=== PATIENT | male | born 1935 | race Caucasian/White ===

== ENCOUNTER 2017-05-24 10:20 | Inpatient (IN) ==
--- NOTE | 2017-05-24 11:35 | Emergency Department Note ---
Arrival - Arrival Chief Complaint: Upper Respiratory Stated Complaint: fever,chills,maybe pneumonia ED Nursing Triage Note: c/o productive cough onset fow a while when working outside but worse last night Mode of Arrival: Ambulatory Limitations: No Limitations Source: Patient Time Seen by Provider: 05/24/17 11:27 - History of Present Illness HPI Narrative: This is an 81-year-old white male who is complaining of a productive cough that began approximately 1 day ago. He states he has been working outside and it got worse last night. He also states that he has a history of pneumonia. He states that the sputum has been clear, but has had some chills at home without a measured fever. He does not have any other complaints for this visit. Onset (ago): day(s) (1) Severity: mild Allergies/Adverse Reactions: Allergies Allergy/AdvReac Type Severity Reaction Status Date / Time No Known Allergies Allergy Unverified 05/24/17 10:53 Review of System - Review of System 12 point system: reviewed and no additional remarkable complaints except as stated - Review of System Constitutional: Present: as per HPI. Absent: fever Respiratory: Present: as per HPI, cough Medical,Surgical,& Family Hx - Medical History Cardio: History of: Hypertension - Surgical History Cardiac Surgeries: Sugical HX of: Cardiac Catheterization - Social History Smoking Status: Smoker, status unknown Frequency of Alcohol Use: None Type of Drug Use: None Exam Physical Examination: - General General appearance: [alert, in mild distress] - Head Head exam: [Present: atraumatic, normocephalic, normal inspection] - Eye Eye exam: [Present: normal appearance, PERRL, EOMI] - ENT ENT exam: [Present: normal exam, normal oropharynx, mucous membranes moist, TM' s normal bilaterally, normal external ear exam] - Neck Neck exam: [Present: normal inspection, full ROM, trachea midline] - Chest Chest inspection: [Present: normal inspection, symmetric chest wall rise] - Respiratory Respiratory exam: [Present: normal lung sounds bilaterally] - Cardiovascular Cardiovascular exam: [Present: regular rate, normal rhythm, normal heart sounds] - Abdominal Exam Abdominal exam: [Present: soft, normal bowel sounds] - Extremities Exam Extremities exam: [Present: normal inspection, full ROM] - Back Exam Back exam: [Present: normal inspection, full ROM] - Neurological Exam Neurological exam: [Present: alert, oriented X3] - Psychiatric Psychiatric exam: [Present: normal affect, normal mood] - Skin Skin exam: [Present: warm, dry, intact, normal color] Vital Signs: Vital Signs Temperature 99.3 F 05/24/17 11:19 Pulse Rate 84 05/24/17 12:27 Respiratory Rate 18 05/24/17 12:27 Blood Pressure 116/54 05/24/17 12:27 O2 Sat by Pulse Oximetry 91 L 05/24/17 10:50 Course - Reevaluation(s) Reevaluation #1: I spoke with hospitalist services about the patient and they will come down to see her in nonurgent. Time: 12:50 Reevaluation #2: Sp from hospitalist services is down to see the patient Time: 12:55 Results - Labs CBC & BMP: 05/24/17 11:31 05/24/17 11:31 Disposition Clinical Impression: Pneumonia Case discussed with: patient Disposition: Still a Patient
[2017-05-24 11:48] LABS: Basophils % 0.3 % (0.0-0.8); Eosinophils % 0.2 % (0.00-10.9); Hematocrit 44.7 VOL% (42.0-52.0); Hemoglobin 15.3 GM/DL (14.0-18.0); Immature Granulocytes % 0.5 %; Immature Granulocytes Absolute 0.08 #; Lymphocytes # 1.1 10*3/uL (1.4-4.0); Lymphocytes % 7.5 % (21.2-54.2); Mean Corpuscular HGB Conc 34.2 GM/DL (32-36); Mean Corpuscular Hemoglobin 31 PG (27-34); Mean Corpuscular Volume 91.8 FL (87-102); Mean Platelet Volume 10.3 FL (9.6-12.0); Monocytes # 1.5 10*3/uL (0.11-0.8); Monocytes % 10.5 % (1.7-12.7); Neutrophils # 11.8 10*3/uL (1.4-7.4); Platelet Count 121 T/CUMM (130-400); Red Blood Count 4.87 MC/CUMM (3.8-5.5); Red Cell Distribution Width 14.2 % (9.3-17.3); White Blood Count 14.6 T/CUMM (4-12)
[2017-05-24 12:18] LABS: Calcium 8.9 MG/DL (8.5-10.1); Potassium 3.6 MMOL/L (3.5-5.1)
[2017-05-24] MEDS ORDERED: cefTRIAXone 1,000 MG VIAL IM STA (12:27)
[2017-05-24] MEDS ORDERED: cefTRIAXone 1,000 MG VIAL ONE (12:29)
[2017-05-24] MEDS ORDERED: cefTRIAXone 1,000 MG in SODIUM CHLORIDE 0.9% 100 ML IV STA (12:35)
--- NOTE | 2017-05-24 12:39 | XRay Report ---
XR chest 2V Indication: Productive cough, fever Comparison: None available Findings: The heart and mediastinum are within normal limits of size and configuration. The pulmonary vascularity is slightly increased. There is increased interstitial pulmonary density with some faint alveolar densities are present mostly within the left midlung near the hilum. No other lung infiltrates, effusions, pneumothorax or other abnormality is demonstrated. Impression: Increased interstitial pulmonary density with faint alveolar densities in the left lung, could indicate pneumonia. Cardiac decompensation cannot be excluded. PROCEDURE INTERPRETED AT [facility] DEPARTMENT OF RADIOLOGY Final Report Signed by: Dr. Ruy Yañez
[2017-05-24] MEDS ORDERED: ALBUTEROL 2.5 MG/3 ML NEB RESP TX PRN (15:25)
[2017-05-24] MEDS ORDERED: ONDANSETRON 4 MG/2 ML VIAL IV PRN (15:25)
[2017-05-24] MEDS ORDERED: ACETAMINOPHEN 325 MG TABLET PO PRN (15:25)
--- NOTE | 2017-05-24 15:41 | Hospitalist History & Physical ---
Assessment and Plan (1) Pneumonia Status: Acute Assessment and plan: Admit to med surg. Start IV fluids. IV antibiotics (Rocephin/Azithromax). prn breathing treatments. Supplemental O2. Blood cultures. UA. CBC in am. Current Visit: Yes (2) Hypertension Status: Acute Assessment and plan: BP stable. Current Visit: Yes (3) Coronary artery disease Status: Chronic Current Visit: Yes History of Present Illness Chief complaint: cough History of present illness: Mr. Gillespie is a 81 year old white male with a history of htn, cad, stent placement, and pneumonia that presents to the ED today for further evaluation of a cough. Pt. states that he was in his normal state of health until yesterday evening when he developed a productive cough. Pt. states he began to produce thick, white sputum. He reports he also began to have "flashes of hot and cold" with a subjective fever and some chills at bedtime. Pt. denies taking any medication to help with the symptoms and presented to the ED for treatment. Pt. denies chest pain, n/v, abdominal pain and any other symptoms at this time. Pt. reports a history of pneumonia in the past. Pt's PCP is Dr. Higgins. Dr. Antonio is his corn shredder. Pt's case has been discussed with the ER physician and also Dr. Rodriguez. Pt. will be admitted to the hospitalist service for further eval and treatment. Home Medications Medication Instructions Recorded Confirmed Type Aspirin [Ecotrin] 81 mg PO QAM 05/24/17 05/24/17 History Carvedilol [Carvedilol] 6.25 mg PO BID 05/24/17 05/24/17 History Gabapentin 300 mg PO TID 05/24/17 05/24/17 History Isosorbide Mononitrate [Isosorbide 30 mg PO QAM 05/24/17 05/24/17 History Mononitrate ER] Losartan Potassium [Losartan 25 mg PO QAM 05/24/17 05/24/17 History Potassium] Simvastatin [Simvastatin] 40 mg PO QAM 05/24/17 05/24/17 History Temazepam [Temazepam] 15 mg PO BEDTIME 05/24/17 05/24/17 History buPROPion HCl [Bupropion HCl Sr] 150 mg PO BID 05/24/17 05/24/17 History Allergies Allergy/AdvReac Type Severity Reaction Status Date / Time No Known Allergies Allergy Unverified 05/24/17 10:53 Medical,Surgical,& Family Hx - Medical History Cardio: History of: Hypertension - Surgical History Cardiac Surgeries: Sugical HX of: Cardiac Catheterization - Family History Family History: Reports;: Family Cancer (mother) - Social History Smoking Status: Smoker, status unknown Frequency of Alcohol Use: None Type of Drug Use: None Marital Status: Lives With:: Spouse Functional capacity: uses cane/walker 12 point system: reviewed and no additional remarkable complaints except as stated - Constitutional Constitutional: Present: chills, fever(s). Absent: night sweats - EENT Eyes: Absent: loss of vision Ears: Present: decreased hearing - Cardiovascular Cardiovascular: Present: dyspnea on exertion. Absent: edema - Respiratory Respiratory: Present: cough, dyspnea on exertion - Gastrointestinal Gastrointestinal: Absent: abdominal pain, nausea, vomiting - Genitourinary Genitourinary: Absent: difficulty urinating, dysuria - Neurological Neurological: Absent: dizziness - Endocrine Endocrine: Present: heat intolerance Exam - Constitutional Vitals: Period Temp Pulse Resp BP Sys/Lopez Pulse Ox Last 24 Hr 99.3 F-99.3 F 84-95 18-20 116-143/54-58 91 General appearance: no acute distress, over weight - Head Head exam: Present: normal inspection, normocephalic - Eye Eye exam: Present: EOMI Pupils: Present: ERICA - GI/Abdominal GI/Abdominal exam: Present: normal bowel sounds, soft. Absent: tenderness - Extremities Exam Extremities exam: Present: normal capillary refill, full ROM. Absent: edema - Neurological Exam Neurological exam: Present: alert, oriented X3 - Psychiatric Psychiatric exam: Present: normal affect, normal mood - Skin Skin exam: Present: normal color, warm, dry Results - Labs CBC & BMP: 05/24/17 11:31 05/24/17 11:31 Lab Results: I have reviewed the past 24 hour labs
[2017-05-24] MEDS: AZITHROMYCIN INJ 500 MG in SODIUM CHLORIDE 0.9% 250 ML IV SCH (16:47)
[2017-05-24] MEDS: ALBUTEROL/IPRATROPIUM 3 ML NEB RESP TX SCH (18:50)
[2017-05-24] MEDS: GABAPENTIN 300 MG CAPSULE PO SCH (20:28)
[2017-05-24] MEDS: CARVEDILOL 6.25 MG TABLET PO SCH (20:28)
[2017-05-24] MEDS: buPROPion SR 150 MG TABLET PO SCH (20:28)
[2017-05-25] MEDS: TEMAZEPAM 15 MG CAPSULE PO SCH ×2 (00:10→21:32)
[2017-05-25] MEDS: ALBUTEROL/IPRATROPIUM 3 ML NEB RESP TX SCH ×4 (00:29→19:09)
[2017-05-25 06:32] LABS: Basophils % 0.1 % (0.0-0.8); Eosinophils # 0.1 10*3/uL (0.0-0.87); Eosinophils % 0.4 % (0.00-10.9); Hematocrit 38.6 VOL% (42.0-52.0); Immature Granulocytes % 0.5 %; Immature Granulocytes Absolute 0.07 #; Lymphocytes # 1.7 10*3/uL (1.4-4.0); Lymphocytes % 12.3 % (21.2-54.2); Mean Corpuscular HGB Conc 33.9 GM/DL (32-36); Mean Corpuscular Hemoglobin 32 PG (27-34); Mean Corpuscular Volume 92.8 FL (87-102); Mean Platelet Volume 11.1 FL (9.6-12.0); Monocytes # 1.2 10*3/uL (0.11-0.8); Monocytes % 8.7 % (1.7-12.7); Neutrophils # 10.9 10*3/uL (1.4-7.4); Platelet Count 113 T/CUMM (130-400); Red Blood Count 4.16 MC/CUMM (3.8-5.5); Red Cell Distribution Width 14.5 % (9.3-17.3)
[2017-05-25 06:33] LABS: Hemoglobin 13.1 GM/DL (14.0-18.0)
[2017-05-25 07:03] LABS: Band Neutrophils 4 % (0-10); Giant Platelets Few; Hypochromasia 1+; Lymphocytes 9 % (20-55); Ovalocytes Slight; Platelet Estimate Decreased; Segmented Neutrophils 81 % (50-85); Total Cells Counted 100
[2017-05-25 07:13] LABS: Calcium 8.2 MG/DL (8.5-10.1); Osmolality,Calculated 284.1 MOS/KG (273-304); Potassium 3.7 MMOL/L (3.5-5.1); Risk Ratio 1.71; Thyroid Stimulating Hormone 0.331 uIU/ml (0.358-3.74); VLDL CHOLESTEROL 11.2 MG/DL
[2017-05-25] MEDS ORDERED: cefTRIAXone 1,000 MG in SODIUM CHLORIDE 0.9% 100 ML IV SCH (09:00)
--- NOTE | 2017-05-25 10:02 | CT Report ---
Exam: CT chest without intravenous contrast Exam date: 05/25/2017 9:56 AM Clinical History: 81 years Male shortness of breath, pneumonia Technique: Axial computed tomography images of the chest without intravenous contrast. The CT exam was performed using one or more of the following dose reduction techniques: Automated exposure control, adjustment of the mA and/or kV according to patient size, or use of iterative reconstruction technique. Comparison: Radiographs from previous day at 1149 hours Findings: Lungs: Patchy perihilar and bibasilar reticular nodular interstitial opacities with parenchymal consolidation. Pleural spaces: No pneumothorax. No significant effusion Heart: Essentially 2 chamber cardiomegaly with atheromatous plaquing along the coronary vessels Mediastinum: Intact. Normal trachea. Granulomatous changes are noted Bones/joints: Intact. No acute fracture. No dislocation. Spondylitic changes throughout the spinal axis Soft tissues: Unremarkable Vasculature: Intact Lymph nodes: No enlarged lymph nodes Visualized abdomen: Colonic diverticula. Small hiatal hernia Impression: 1. Multifocal pneumonia 2. Coronary atherosclerosis. 3. Diverticulosis coli 4. Small hiatal hernia PROCEDURE INTERPRETED AT [facility] DEPARTMENT OF RADIOLOGY Final Report Signed by: Farhan Lobo
[2017-05-25] MEDS: ASPIRIN EC 81 MG TABLET PO SCH (10:14)
[2017-05-25] MEDS: buPROPion SR 150 MG TABLET PO SCH ×2 (10:14→21:31)
[2017-05-25] MEDS: GABAPENTIN 300 MG CAPSULE PO SCH ×3 (10:14→21:31)
[2017-05-25] MEDS: LOSARTAN 25 MG TABLET PO SCH (10:14)
[2017-05-25] MEDS: PANTOPRAZOLE 40 MG TABLET PO SCH (10:14)
[2017-05-25] MEDS: ISOSORBIDE MONONITRATE 30 MG TABLET PO SCH (10:14)
[2017-05-25] MEDS: SIMVASTATIN 40 MG TABLET PO SCH (10:14)
[2017-05-25] MEDS: CARVEDILOL 6.25 MG TABLET PO SCH ×2 (10:15→21:32)
[2017-05-25 12:12] LABS: Apearance,Urine CLOUDY (Clear); Bilirubin,Urine Negative (Negative); Blood, Urine Negative (Negative); Glucose,Urine (UA) Negative (Negative); Ketones,Urine Negative (Negative); Mucus,Urine Many /LPF (Occasional); Nitrite,Urine Negative (Negative); Protein,Urine 30 MG/DL; RBC,Urine 1 /HPF (0-4); Sperm,Urine Occasional /HPF (Negative); Squamous Epithelial Cell,Urine Occasional /HPF (0-10); Urine Color Yellow (Yellow); Urine Specific Gravity 1.028 (1.001-1.035); Urine Urobilinogen < 2.0 EU/DL (0.2-1.0); WBC,Urine 4 /HPF (0-6)
[2017-05-25] MEDS: cefTRIAXone 1,000 MG in SODIUM CHLORIDE 0.9% 100 ML IV SCH (12:39)
[2017-05-25] MEDS: AZITHROMYCIN INJ 500 MG in SODIUM CHLORIDE 0.9% 250 ML IV SCH (15:19)
--- NOTE | 2017-05-25 15:41 | Hospitalist Progress Note ---
Hospitalist: Subjective Interval history: 81-year-old male who was admitted with pneumonia cough and fever. Cough and fever are better today Exam - Constitutional Vitals: Period Temp Pulse Resp BP Sys/Lopez Pulse Ox Last 24 Hr 97.4 F-98.2 F 70-105 12-20 106-126/50-70 92-98 Exam: General: [No Acute Distress] HEENT: [Normocephalic, atraumatic, Extra ocular movements intact] Neck: [Supple, No JVD] Chest: [Few rales bilaterally] CV: [S1 + S2 audible without murmur, gallop or rub] Abd: [soft, NT, Non-distended, BS +] Ext: [No edema] Skin: [No purpura, bruising or rash] Rheumatologic: [No Joint deformities] Neurologic: [Awake and alert] Results - Labs CBC & BMP: 05/25/17 05:00 05/25/17 05:00 - Impressions Assessment and Plan: (1) Bacterial pneumonia Status: Acute Assessment and plan: Continue IV Rocephin and Zithromax. CT chest done 05/25 shows multifocal pneumonia Current Visit: Yes (2) Essential hypertension Status: Acute Assessment and plan: BP stable. Current Visit: Yes (3) Coronary artery disease Status: Chronic Current Visit: Yes DVT prophylaxis with Lovenox
--- NOTE | 2017-05-25 19:23 | ECHO Report ---
Dominik Gillespie Exam Date: 05/25/2017 10:31 Referring Physician: Technologist: natalie Paniagua ARDMS, RVT Age: 81 Ht (in): 66 Wt (lb): 200 Gender: M Exam Location: [facility] [place] Echo Indications: Essential (primary) hypertension, CAD, Hx: stent placement, Pneumonia BP: 126 / 58 HR: 77 Rhythm: Sinus Technical Quality: Technically difficult study IMPRESSIONS Normal left ventricular size, without hypertrophy, with normal systolic thickening of the morris, with abnormal septal motion. Estimated left ventricular ejection fraction 50%. Grade 2 diastolic dysfunction. Mildly increased right ventricular size. Normal systolic function. The left atrium is mildly enlarged. Mild pulmonary hypertension. Mild mitral insufficiency. MEASUREMENTS (Male / Female) Normal Values 2D ECHO LV Diastolic Diameter PLAX 5.3 cm 4.2 - 5.9 / 3.9 - 5.3 cm LV Systolic Diameter PLAX 3.8 cm LV Fractional Shortening PLAX 28.3 % IVS Diastolic Thickness 1.0 cm 0.6 - 1.0 / 0.6 - 0.9 cm LVPW Diastolic Thickness 0.9 cm 0.6 - 1.0 / 0.6 - 0.9 cm RV Internal Dim ED PLAX 4.1 cm Aortic Root Diameter 3.4 cm LA Systolic Diameter LX 4.2 cm 3.0 - 4.0 / 2.7 - 3.8 cm DOPPLER TR Peak Velocity 281.0 cm/s TR Peak Gradient 31.6 mmHg FINDINGS Left Ventricle Normal left ventricular size, without hypertrophy, with normal systolic thickening of the morris, with abnormal septal motion. Estimated left ventricular ejection fraction 50%. Grade 2 diastolic dysfunction. Right Ventricle Mildly increased right ventricular size. Normal systolic function. Right Atrium The right atrium is normal in size. Left Atrium The left atrium is mildly enlarged. Mitral Valve Morphologically normal mitral valve. Mild mitral regurgitation. Aortic Valve Morphologically normal aortic valve without significant sclerosis or stenosis. There is no aortic regurgitation. Tricuspid Valve Morphologically normal tricuspid valve. Mild tricuspid valve regurgitation. Tricuspid regurgitation velocities suggest a PAP of 42 mmHg. Pulmonic Valve Pulmonic valve not well visualized. No pulmonary valve regurgitation. Pericardium Normal pericardium without effusion. Aorta Normal ascending aorta dimension. Richard Granado (Electronically Signed) Final Date: 25 May 2017 19:21
[2017-05-26] MEDS: cefTRIAXone 1,000 MG in SODIUM CHLORIDE 0.9% 100 ML IV SCH ×3 (00:01→23:44)
[2017-05-26] MEDS: ALBUTEROL/IPRATROPIUM 3 ML NEB RESP TX SCH ×5 (00:59→20:13)
[2017-05-26 06:17] LABS: Basophils % 0.1 % (0.0-0.8); Eosinophils # 0.2 10*3/uL (0.0-0.87); Eosinophils % 2.3 % (0.00-10.9); Hematocrit 35.2 VOL% (42.0-52.0); Immature Granulocytes % 0.3 %; Immature Granulocytes Absolute 0.03 #; Lymphocytes # 1.8 10*3/uL (1.4-4.0); Lymphocytes % 20.4 % (21.2-54.2); Mean Corpuscular HGB Conc 34.1 GM/DL (32-36); Mean Corpuscular Hemoglobin 32 PG (27-34); Mean Corpuscular Volume 93.4 FL (87-102); Mean Platelet Volume 10.9 FL (9.6-12.0); Monocytes # 0.5 10*3/uL (0.11-0.8); Monocytes % 5.9 % (1.7-12.7); Neutrophils # 6.1 10*3/uL (1.4-7.4); Platelet Count 117 T/CUMM (130-400); Red Blood Count 3.77 MC/CUMM (3.8-5.5); Red Cell Distribution Width 14.5 % (9.3-17.3); White Blood Count 8.6 T/CUMM (4-12)
[2017-05-26 06:58] LABS: Calcium 8.4 MG/DL (8.5-10.1); Potassium 3.5 MMOL/L (3.5-5.1)
[2017-05-26] MEDS: ASPIRIN EC 81 MG TABLET PO SCH (09:00)
[2017-05-26] MEDS: AZITHROMYCIN 250 MG TABLET PO SCH (09:00)
[2017-05-26] MEDS: GABAPENTIN 300 MG CAPSULE PO SCH ×3 (09:00→23:42)
[2017-05-26] MEDS: LOSARTAN 25 MG TABLET PO SCH (09:00)
[2017-05-26] MEDS: ISOSORBIDE MONONITRATE 30 MG TABLET PO SCH (09:00)
[2017-05-26] MEDS: CARVEDILOL 6.25 MG TABLET PO SCH ×2 (09:00→23:42)
[2017-05-26] MEDS: SIMVASTATIN 40 MG TABLET PO SCH (09:00)
[2017-05-26] MEDS: buPROPion SR 150 MG TABLET PO SCH ×2 (09:00→23:42)
[2017-05-26] MEDS: PANTOPRAZOLE 40 MG TABLET PO SCH (09:00)
--- NOTE | 2017-05-26 11:17 | XRay Report ---
XR chest 1V portable Indication: Pneumonia Comparison: 24 May 2017 Findings: The heart and mediastinum are normal in size and configuration. The pulmonary vascularity is prominent but similar to previous exam. There is improvement of the left lung infiltrates when compared to previous. No other lung infiltrates, effusions, pneumothorax or other abnormality is demonstrated. Impression: Improving left lung infiltrates. No other interval changes. PROCEDURE INTERPRETED AT [facility] DEPARTMENT OF RADIOLOGY Final Report Signed by: Dr. Ruy Yañez
[2017-05-26] MEDS: CHOLECALCIFEROL 1,000 UNIT TABLET PO SCH (14:00)
--- NOTE | 2017-05-26 15:37 | Hospitalist Progress Note ---
Hospitalist: Subjective Interval history: 81-year-old male admitted with pneumonia. He has less cough today. Exam - Constitutional Vitals: Period Temp Pulse Resp BP Sys/Lopez Pulse Ox Last 24 Hr 96.6 F-98.0 F 72-92 16-20 119-147/64-94 94-99 Exam: General: [No Acute Distress] HEENT: [Normocephalic, atraumatic, Extra ocular movements intact] Neck: [Supple, No JVD] Chest: [Few rales bilaterally] CV: [S1 + S2 audible without murmur, gallop or rub] Abd: [soft, NT, Non-distended, BS +] Ext: [No edema] Skin: [No purpura, bruising or rash] Rheumatologic: [No Joint deformities] Neurologic: [Awake and alert] Results - Labs CBC & BMP: 05/26/17 05:36 05/26/17 05:36 - Impressions Assessment and Plan: (1) Bacterial pneumonia Status: Acute Assessment and plan: Continue IV Rocephin and Zithromax. CT chest done 05/25 shows multifocal pneumonia Current Visit: Yes (2) Essential hypertension Status: Acute Assessment and plan: BP stable. Current Visit: Yes (3) Coronary artery disease Status: Chronic Current Visit: Yes DVT prophylaxis with Lovenox
[2017-05-26] MEDS: TEMAZEPAM 15 MG CAPSULE PO SCH (23:42)
[2017-05-27] MEDS: ALBUTEROL/IPRATROPIUM 3 ML NEB RESP TX SCH ×4 (00:01→19:13)
[2017-05-27] MEDS ORDERED: PNEUMOCOCCAL VACCINE (13 VALENT) 0.5 ML SYRINGE IM ONE (07:42)
[2017-05-27] MEDS ORDERED: INFLUENZA VIRUS VACCINE 0.5 ML SYRINGE IM ONE (07:42)
[2017-05-27] MEDS: ISOSORBIDE MONONITRATE 30 MG TABLET PO SCH (09:49)
[2017-05-27] MEDS: AZITHROMYCIN 250 MG TABLET PO SCH (09:50)
[2017-05-27] MEDS: GABAPENTIN 300 MG CAPSULE PO SCH ×3 (09:50→20:32)
[2017-05-27] MEDS: ASPIRIN EC 81 MG TABLET PO SCH (09:50)
[2017-05-27] MEDS: SIMVASTATIN 40 MG TABLET PO SCH (09:50)
[2017-05-27] MEDS: PANTOPRAZOLE 40 MG TABLET PO SCH (09:50)
[2017-05-27] MEDS: CARVEDILOL 6.25 MG TABLET PO SCH ×2 (09:50→20:32)
[2017-05-27] MEDS: buPROPion SR 150 MG TABLET PO SCH ×2 (09:50→20:32)
[2017-05-27] MEDS: CHOLECALCIFEROL 1,000 UNIT TABLET PO SCH (09:50)
[2017-05-27] MEDS: LOSARTAN 25 MG TABLET PO SCH (09:50)
[2017-05-27] MEDS: cefTRIAXone 1,000 MG in SODIUM CHLORIDE 0.9% 100 ML IV SCH ×2 (11:40→23:29)
--- NOTE | 2017-05-27 15:30 | Hospitalist Progress Note ---
Hospitalist: Subjective Interval history: 81-year-old male in the hospital for multifocal pneumonia. He still has some cough and dyspnea but is getting better. Exam - Constitutional Vitals: Period Temp Pulse Resp BP Sys/Lopez Pulse Ox Last 24 Hr 97.0 F-97.8 F 70-80 16-20 109-150/66-98 92-98 Exam: General: [No Acute Distress] HEENT: [Normocephalic, atraumatic, Extra ocular movements intact] Neck: [Supple, No JVD] Chest: [Few rales bilaterally] CV: [S1 + S2 audible without murmur, gallop or rub] Abd: [soft, NT, Non-distended, BS +] Ext: [No edema] Skin: [No purpura, bruising or rash] Rheumatologic: [No Joint deformities] Neurologic: [Awake and alert] Results - Labs CBC & BMP: 05/26/17 05:36 05/26/17 05:36 - Impressions Assessment and Plan: (1) Bacterial pneumonia Status: Acute Assessment and plan: Continue IV Rocephin and Zithromax. CT chest done 05/25 shows multifocal pneumonia, will repeat chest x-ray. He received pneumococcal Prevnar 13 vaccine today. Flu shot was ordered but pharmacy does not carry it. Current Visit: Yes (2) Essential hypertension Status: Acute Assessment and plan: BP stable. Current Visit: Yes (3) Coronary artery disease Status: Chronic Current Visit: Yes DVT prophylaxis with Lovenox
--- NOTE | 2017-05-27 16:19 | XRay Report ---
2 view chest. Indication: Pneumonia. Comparison: May 26, 2017. The heart is enlarged. The pulmonary vasculature is prominent. The interstitial lung markings are prominent with curly B lines. Abnormality at the left lung base shows improvement. Persistent abnormality is seen at the right lung base. Impression: There are findings present which may be related to congestive heart failure. Patchy areas of infiltrate in the left base show improvement, while findings in the right lung base remain stable. PROCEDURE INTERPRETED AT [facility] DEPARTMENT OF RADIOLOGY Final Report Signed by: Dr. Bridget Zeng
[2017-05-27] MEDS: TEMAZEPAM 15 MG CAPSULE PO SCH (20:32)
[2017-05-28] MEDS: ALBUTEROL/IPRATROPIUM 3 ML NEB RESP TX SCH ×5 (00:58→23:42)
[2017-05-28] MEDS: buPROPion SR 150 MG TABLET PO SCH ×2 (08:54→20:43)
[2017-05-28] MEDS: ASPIRIN EC 81 MG TABLET PO SCH (08:54)
[2017-05-28] MEDS: AZITHROMYCIN 250 MG TABLET PO SCH (08:54)
[2017-05-28] MEDS: CARVEDILOL 6.25 MG TABLET PO SCH ×2 (08:55→20:43)
[2017-05-28] MEDS: GABAPENTIN 300 MG CAPSULE PO SCH ×3 (08:55→20:43)
[2017-05-28] MEDS: SIMVASTATIN 40 MG TABLET PO SCH (08:55)
[2017-05-28] MEDS: CHOLECALCIFEROL 1,000 UNIT TABLET PO SCH (08:55)
[2017-05-28] MEDS: PANTOPRAZOLE 40 MG TABLET PO SCH (08:55)
[2017-05-28] MEDS: ISOSORBIDE MONONITRATE 30 MG TABLET PO SCH (08:55)
[2017-05-28] MEDS: LOSARTAN 25 MG TABLET PO SCH (08:56)
[2017-05-28] MEDS ORDERED: BISACODYL 5 MG TABLET PO ONE (10:03)
[2017-05-28] MEDS ORDERED: BISACODYL 5 MG TABLET PO PRN (12:11)
[2017-05-28] MEDS: cefTRIAXone 1,000 MG in SODIUM CHLORIDE 0.9% 100 ML IV SCH ×2 (12:48→13:55)
--- NOTE | 2017-05-28 13:24 | Hospitalist Progress Note ---
Assessment and Plan (1) Urinary retention Status: Acute Assessment and plan: In and out catheterization for today. Verify volume. If he retains again on a repeat bladder scan patient over Montez catheter and urology consultation. Start him on Flomax 0.4 mg daily. Current Visit: Yes (2) Constipation Status: Acute Assessment and plan: Start patient on Dulcolax 5 mg p.o. twice daily Current Visit: Yes (3) Pneumonia Status: Acute Assessment and plan: Continue the antibiotics for repeated BMP magnesium and CBC tomorrow Current Visit: Yes (4) Hypertension Status: Acute Assessment and plan: Continue meds as now Current Visit: Yes (5) Coronary artery disease Status: Chronic Assessment and plan: Continue cardiotonic medications as now Current Visit: Yes Hospitalist: Subjective Interval history: Patient has been seen interviewed and examined chart has been reviewed. Is complaining of not having been able to move his bowels. Is constipated. He has a history of use of all opioid analgesics and I suspect that is the reason for his constipation. Has not had a bowel movement in 2 days. Also complained of not being able to urinate. I ordered a bladder scan that was 900 cc. We will in and out catheter and observe. If he develops urinary retention again a Montez catheter replaced and get a urology consult. Will therefore start mild softness with Dulcolax 5 mg tablet twice a day. I encouraged the patient to walk out of bed to chair the consulting physical therapy for ambulation. He has been in the hospital since the with bacterial pneumonia from the community that is responded to Rocephin and azithromycin. He also has history of chronic back pain for which he is using pain medication. Patient has a history of coronary disease. He is responded well to antibiotic in the hospital with thrombolytic pneumonia in the bigger point of the issue.. His white count is normal. Exam - Constitutional Vitals: Period Temp Pulse Resp BP Sys/Lopez Pulse Ox Last 24 Hr 97.0 F-98.5 F 73-83 16-20 129-185/69-95 89-99 General appearance: over weight - Head Head exam: Present: normocephalic, atraumatic - Eye Eye exam: Present: EOMI Pupils: Present: ERICA - ENT ENT exam: Present: normal exam - Respiratory Respiratory exam: Present: clear to auscultation bilaterally, other (Bibasilar crackles noted) - Cardiovascular Cardiovascular exam: Present: regular rate and rhythm (With occasional ectopic beats) - GI/Abdominal GI/Abdominal exam: Present: normal bowel sounds, soft - Extremities Exam Extremities exam: Present: full ROM - Neurological Exam Neurological exam: Present: alert, oriented X3, CN II-XII intact - Psychiatric Psychiatric exam: Present: normal affect, normal mood - Skin Skin exam: Present: normal color, warm, dry Results - Labs CBC & BMP: 05/26/17 05:36 05/26/17 05:36 Lab Results: I have reviewed the past 24 hour labs (Need to repeat labs in the morning with a BMP magnesium and CBC)
[2017-05-28] MEDS: TAMSULOSIN 0.4 MG CAPSULE PO SCH (15:45)
[2017-05-29] MEDS: cefTRIAXone 1,000 MG in SODIUM CHLORIDE 0.9% 100 ML IV SCH ×2 (00:08→13:30)
[2017-05-29] MEDS: TEMAZEPAM 15 MG CAPSULE PO SCH (00:08)
[2017-05-29 05:41] LABS: Basophils % 0.4 % (0.0-0.8); Eosinophils # 0.3 10*3/uL (0.0-0.87); Hematocrit 36.8 VOL% (42.0-52.0); Hemoglobin 12.5 GM/DL (14.0-18.0); Immature Granulocytes % 0.1 %; Immature Granulocytes Absolute 0.01 #; Lymphocytes # 1.3 10*3/uL (1.4-4.0); Lymphocytes % 17.7 % (21.2-54.2); Mean Corpuscular Hemoglobin 31 PG (27-34); Mean Corpuscular Volume 91.8 FL (87-102); Mean Platelet Volume 10.7 FL (9.6-12.0); Monocytes % 13.8 % (1.7-12.7); Neutrophils # 4.8 10*3/uL (1.4-7.4); Platelet Count 146 T/CUMM (130-400); Red Blood Count 4.01 MC/CUMM (3.8-5.5); Red Cell Distribution Width 14.1 % (9.3-17.3); White Blood Count 7.4 T/CUMM (4-12)
[2017-05-29 06:09] LABS: Calcium 8.7 MG/DL (8.5-10.1); Magnesium 2.6 MG/DL (1.8-2.4); Potassium 3.5 MMOL/L (3.5-5.1)
[2017-05-29] MEDS: ALBUTEROL/IPRATROPIUM 3 ML NEB RESP TX SCH (07:32)
[2017-05-29 08:53] VITALS: BP 148/77
[2017-05-29] MEDS: buPROPion SR 150 MG TABLET PO SCH (09:28)
[2017-05-29] MEDS: LOSARTAN 25 MG TABLET PO SCH (09:28)
[2017-05-29] MEDS: CHOLECALCIFEROL 1,000 UNIT TABLET PO SCH (09:28)
[2017-05-29] MEDS: CARVEDILOL 6.25 MG TABLET PO SCH (09:28)
[2017-05-29] MEDS: ISOSORBIDE MONONITRATE 30 MG TABLET PO SCH (09:28)
[2017-05-29] MEDS: GABAPENTIN 300 MG CAPSULE PO SCH (09:28)
[2017-05-29] MEDS: SIMVASTATIN 40 MG TABLET PO SCH (09:28)
[2017-05-29] MEDS: ASPIRIN EC 81 MG TABLET PO SCH (09:28)
[2017-05-29] MEDS: TAMSULOSIN 0.4 MG CAPSULE PO SCH (09:28)
[2017-05-29] MEDS: PANTOPRAZOLE 40 MG TABLET PO SCH (09:28)
[2017-05-29] MEDS: AZITHROMYCIN 250 MG TABLET PO SCH (09:28)
--- NOTE | 2017-05-29 10:33 | Discharge Summary ---
<Sai Terry - Last Filed: 05/29/17 10:28> Hospital Course - Hospital Course Hospital Course: Mr. Gillespie is a 81-year-old male who was admitted on 05/24/2017 with pneumonia. He was treated with IV Rocephin and azithromycin and responded appropriately. During his hospital course the patient was also found to be constipated and to have urinary retention. Patient does have a history of opioid analgesics which is still likely cause of patient's constipation. Patient was started on Dulcolax 5 mg p.o. twice daily. Bladder scan showed 900 cc of urine. In and out catheter was performed and patient was observed. Patient was encouraged to ambulate with the aid of physical therapy. He has responded appropriately to all therapy. White count has normalized to 7.4. Blood cultures are negative at 3 days. Cough is much improved. At this time, patient is reached maximum benefit from hospitalization and is stable for discharge home. Patient has been instructed to follow-up with his PCP Dr. Higgins next week. Diagnosis - Discharge Diagnosis (1) Urinary retention Status: Acute (2) Constipation Status: Acute (3) Pneumonia Status: Acute (4) Hypertension Status: Acute (5) Coronary artery disease Status: Chronic Specialty Discharge - Follow Up or Referrals Follow up with: Jhony Higgins MD [Primary Care Provider] - (need appointment next week) Discharge Plan - Discharge Data Disposition: Disch To Home/Self Care Condition at Discharge: Stable Discharge Diet: heart healthy Activity: increase activity as tolerated Hygiene: no restrictions Weight Bearing at Discharge: full weight bearing Driving: not until seen by doctor Contact your physician if you experience:: fever over 101, Difficulty voiding, Shortness of breath, pain uncontrolled by pain medications - Discharge Medications New Cholecalciferol [Vitamin D3] 2,000 unit PO DAILY #30 tablet Levofloxacin Tab [Levaquin Tab] 500 mg PO DAILY #5 tablet Tamsulosin [Flomax] 0.4 mg PO DAILY #30 capsule Albuterol Inhaler [Proventil Inhaler] 2 puff INH Q6H PRN #1 inhaler PRN Reason: Shortness Of Breath/Wheezing Continue buPROPion HCl [Bupropion HCl Sr] 150 mg PO BID Simvastatin 40 mg PO QAM Losartan Potassium 25 mg PO QAM Isosorbide Mononitrate [Isosorbide Mononitrate ER] 30 mg PO QAM Gabapentin 300 mg PO TID Aspirin [Ecotrin] 81 mg PO QAM Temazepam 15 mg PO BEDTIME Carvedilol 6.25 mg PO BID - Follow Up or Referral Follow Up: Jhony Higgins MD [Primary Care Provider] - (need appointment next week) - Forms/Instructions Instructions: Hypertension (DC), Pneumonia (DC) Exam - Constitutional Vitals: Period Temp Pulse Resp BP Sys/Lopez Pulse Ox Last 24 Hr 97.8 F-98.3 F 75-89 18-20 126-148/66-77 90-98 General appearance: over weight - Head Head exam: Present: normocephalic, atraumatic - Eye Eye exam: Present: other (Loss of the right function (chronic)) - Respiratory Respiratory exam: Present: clear to auscultation bilaterally - Cardiovascular Cardiovascular exam: Present: regular rate and rhythm - Extremities Exam Extremities exam: Present: full ROM - Neurological Exam Neurological exam: Present: alert, oriented X3, CN II-XII intact - Psychiatric Psychiatric exam: Present: normal affect, normal mood - Skin Skin exam: Present: normal color, warm, dry Discharge Results Procedures and tests throughout hospitalization: Pending Orders 05/24/17 11:31 Blood Culture Stat 05/24/17 15:25 Sputum Culture and Gram Stain Routine Labs on day of discharge: Labs from last 24 hours 05/29/17 05/29/17 05:00 05:00 WBC 7.4 RBC 4.01 Hgb 12.5 L Hct 36.8 L MCV 91.8 MCH 31 MCHC 34.0 RDW 14.1 Plt Count 146 D MPV 10.7 Neut % (Auto) 64.0 Lymph % (Auto) 17.7 L Hanson % (Auto) 13.8 H Eos % (Auto) 4.0 Baso % (Auto) 0.4 Neut # (Auto) 4.8 Lymph # (Auto) 1.3 L Hanson # (Auto) 1.0 H Eos # (Auto) 0.3 Baso # (Auto) 0.0 Immature Gran % 0.1 Nucleated RBC % 0.0 Immature Gran # 0.01 Nucleated RBCs # 0.00 Immature Plt Fraction 0.0 Sodium 143 Potassium 3.5 Chloride 105 Carbon Dioxide 32 Anion Gap 9.5 BUN 13 Creatinine 0.80 GFR Calculation 98 BUN/Creatinine Ratio 16.00 Glucose 74 Calculated Osmolality 283.0 Calcium 8.7 Magnesium 2.6 H Preliminary micro results at discharge 05/24/17 11:31 Blood Culture - Preliminary Blood No growth at 3 days 05/24/17 11:30 Blood Culture - Preliminary Blood No growth at 3 days DS: Provider Date of admission: 05/24/17 13:05 Primary care physician: Jhony Higgins MD Attending physician on admission: Tati Rodriguez MD Discharging clinician: Sai Terry MD <Oscar Crawford - Last Filed: 05/29/17 12:42> Hospital Course - Time spent with patient Time with patient DS: Greater than 30 minutes DS: Provider Expected date of discharge: 05/29/17
== END 2017-05-29 13:20 | disposition home or self-care (01) | DRG 195 ==
LOC: N.ED 10:20 → N.EDINP 13:05 → SUATTDRO 13:05 → N.EDINP 15:02 → N.5E 15:03
PROVIDERS: ADMIT Hospitalist; ATTEND Internal Medicine Infectious Disease

== ENCOUNTER 2019-06-18 03:12 | Observation (INO) ==
[2019-06-18 04:19] LABS: Basophils % 0.2 % (0.0-0.8); Eosinophils % 0.3 % (0.00-10.9); Hematocrit 49.3 VOL% (42.0-52.0); Immature Granulocytes % 0.3 %; Immature Granulocytes Absolute 0.03 #; Lymphocytes # 1.6 10*3/uL (1.4-4.0); Lymphocytes % 17.3 % (21.2-54.2); Mean Corpuscular HGB Conc 32.5 GM/DL (32-36); Monocytes % 7.6 % (1.7-12.7); Neutrophils % 74.3 % (38.7-73.9); Platelet Count 163 T/CUMM (130-400); Red Blood Count 5.54 MC/CUMM (3.8-5.5); Red Cell Distribution Width 14.3 % (9.3-17.3); White Blood Count 9.5 T/CUMM (4-12)
[2019-06-18 04:26] LABS: PT Patient Result 10.4 SECS (9.6-12.2)
[2019-06-18 04:30] LABS: Apearance,Urine CLEAR (Clear); Bilirubin,Urine Negative (Negative); Blood, Urine Moderate mg/dL (Negative); Glucose,Urine (UA) Negative (Negative); Ketones,Urine 5 mg/dL (Negative); Nitrite,Urine Negative (Negative); Protein,Urine Negative; RBC,Urine 58 /HPF (0-4); Urine Color Yellow (Yellow); Urine Specific Gravity 1.013 (1.001-1.035); Urine Urobilinogen < 2.0 EU/DL (0.2-1.0); WBC,Urine <1 /HPF (0-6)
[2019-06-18 04:36] LABS: Barbiturates Screen,Urine Negative (Negative); Benzodiazepines Screen,Urine Negative (Negative); Cannabinoid Screen,Urine Negative (Negative); Opiate Screen,Urine Negative (Negative); Phencyclidine Screen,Urine Negative (Negative)
[2019-06-18 04:37] LABS: Albumin 4.3 G/DL (3.4-5.0); Bilirubin,Total 0.6 MG/DL (0.2-1.0); Osmolality,Calculated 286.1 MOS/KG (273-304); Total Protein 7.7 G/DL (6.4-8.3)
[2019-06-18] MEDS ORDERED: hydrALAZINE 20 MG/1 ML VIAL IV STA (05:20)
[2019-06-18] MEDS ORDERED: ACETAMINOPHEN 325 MG TABLET PO PRN (06:11)
[2019-06-18] MEDS ORDERED: ONDANSETRON 4 MG/2 ML VIAL IV PRN (06:11)
[2019-06-18] MEDS ORDERED: ENOXAPARIN 30 MG/0.3 ML SYRINGE SUBCUT SCH (06:30)
[2019-06-18] MEDS ORDERED: INFLUENZA VIRUS VACCINE 0.5 ML SYRINGE IM ONE (07:37)
[2019-06-18] MEDS: PANTOPRAZOLE 40 MG TABLET PO SCH (10:01)
[2019-06-18] MEDS: carvediloL 6.25 MG TABLET PO SCH ×2 (10:01→18:14)
[2019-06-18] MEDS: LOSARTAN 25 MG TABLET PO SCH (10:01)
[2019-06-18] MEDS: ISOSORBIDE MONONITRATE 30 MG TABLET PO SCH (10:01)
[2019-06-18] MEDS: traMADol 50 MG TABLET PO SCH ×3 (10:01→21:07)
[2019-06-18] MEDS: TAMSULOSIN 0.4 MG CAPSULE PO SCH (10:01)
[2019-06-18] MEDS: ASPIRIN EC 81 MG TABLET PO SCH (10:01)
[2019-06-18] MEDS: ENOXAPARIN 40 MG/0.4 ML SYRINGE SUBCUT SCH (10:01)
[2019-06-18] MEDS: buPROPion SR 150 MG TABLET PO SCH ×2 (10:03→21:06)
[2019-06-18] MEDS ORDERED: TEMAZEPAM 15 MG CAPSULE PO SCH (21:00)
[2019-06-18] MEDS ORDERED: SIMVASTATIN 40 MG TABLET PO SCH (21:00)
[2019-06-19 05:02] LABS: Basophils % 0.3 % (0.0-0.8); Eosinophils # 0.1 10*3/uL (0.0-0.87); Eosinophils % 1.5 % (0.00-10.9); Hematocrit 44.2 VOL% (42.0-52.0); Hemoglobin 14.2 GM/DL (14.0-18.0); Immature Granulocytes % 0.5 %; Immature Granulocytes Absolute 0.04 #; Lymphocytes # 1.9 10*3/uL (1.4-4.0); Lymphocytes % 25.7 % (21.2-54.2); Mean Corpuscular HGB Conc 32.1 GM/DL (32-36); Mean Corpuscular Volume 90.6 FL (87-102); Mean Platelet Volume 10.3 FL (9.6-12.0); Monocytes % 12.2 % (1.7-12.7); Neutrophils % 59.8 % (38.7-73.9); Platelet Count 146 T/CUMM (130-400); Red Blood Count 4.88 MC/CUMM (3.8-5.5); Red Cell Distribution Width 14.5 % (9.3-17.3); White Blood Count 7.4 T/CUMM (4-12)
[2019-06-19 05:33] LABS: Calcium 8.7 MG/DL (8.5-10.1); Osmolality,Calculated 280.4 MOS/KG (273-304)
[2019-06-19] MEDS ORDERED: METOCLOPRAMIDE 5 MG TABLET PO SCH (07:30)
[2019-06-19] MEDS: ASPIRIN EC 81 MG TABLET PO SCH (09:09)
[2019-06-19] MEDS: buPROPion SR 150 MG TABLET PO SCH (09:09)
[2019-06-19] MEDS: PANTOPRAZOLE 40 MG TABLET PO SCH (09:09)
[2019-06-19] MEDS: LOSARTAN 25 MG TABLET PO SCH (09:09)
[2019-06-19] MEDS: ISOSORBIDE MONONITRATE 30 MG TABLET PO SCH (09:09)
[2019-06-19] MEDS: traMADol 50 MG TABLET PO SCH (09:10)
[2019-06-19] MEDS: TAMSULOSIN 0.4 MG CAPSULE PO SCH (09:10)
[2019-06-19] MEDS: carvediloL 6.25 MG TABLET PO SCH (09:10)
[2019-06-19] MEDS: ENOXAPARIN 40 MG/0.4 ML SYRINGE SUBCUT SCH (09:10)
[2019-06-19 12:11] VITALS: BP 123/96
== END 2019-06-19 14:20 | disposition home or self-care (01) ==
LOC: EDUNIT# → EDBD → N.EDINP 03:12 → N.ED 03:12 → N.EDINP 07:05 → N.2E 07:11
PROVIDERS: ADMIT Internal Medicine; ATTEND Internal Medicine

== ENCOUNTER 2020-12-23 09:30 | Inpatient (IN) ==
[2020-12-23 11:23] LABS: Basophils % 0.3 % (0.0-0.8); Eosinophils # 0.2 10*3/uL (0.0-0.87); Eosinophils % 2.2 % (0.00-10.9); Hematocrit 44.7 VOL% (42.0-52.0); Hemoglobin 14.6 GM/DL (14.0-18.0); Immature Granulocytes % 0.4 %; Immature Granulocytes Absolute 0.04 #; Lymphocytes # 1.7 10*3/uL (1.4-4.0); Mean Corpuscular HGB Conc 32.7 GM/DL (32-36); Monocytes % 8.1 % (1.7-12.7); Platelet Count 178 T/CUMM (130-400); Red Blood Count 5.08 MC/CUMM (3.8-5.5); Red Cell Distribution Width 14.4 % (9.3-17.3); White Blood Count 9.2 T/CUMM (4-12)
[2020-12-23 11:33] LABS: Bacteria,Urine Moderate /HPF (Few); Bilirubin,Urine Negative (Negative); Blood, Urine Large mg/dL (Negative); Glucose,Urine (UA) Negative (Negative); Ketones,Urine Negative (Negative); Mucus,Urine Occasional /LPF (Occasional); Nitrite,Urine Negative (Negative); Protein,Urine Negative; RBC,Urine 12 /HPF (0-4); Urine Appearance CLOUDY (Clear); Urine Color Yellow (Yellow); Urine Specific Gravity 1.008 (1.001-1.035); Urine Urobilinogen < 2.0 EU/DL (0.2-1.0); WBC,Urine 76 /HPF (0-6)
[2020-12-23 11:44] LABS: Bilirubin,Total 0.5 MG/DL (0.2-1.0); Calcium 9.1 MG/DL (8.5-10.1); Osmolality,Calculated 283.1 MOS/KG (273-304); Potassium 3.8 MMOL/L (3.5-5.1); Total Protein 7.2 G/DL (6.4-8.2)
[2020-12-23] MEDS ORDERED: DEXTROSE 50% 25 GM/50 ML VIAL IV PRN (13:47)
[2020-12-23] MEDS ORDERED: GLUCAGON 1 MG VIAL IM PRN (13:47)
[2020-12-23] MEDS ORDERED: ONDANSETRON 4 MG/2 ML VIAL IV PRN (13:47)
[2020-12-23] MEDS: cefTRIAXone 1,000 MG in SODIUM CHLORIDE 0.9% 100 ML IV SCH (14:49)
[2020-12-23] MEDS: ENOXAPARIN 40 MG/0.4 ML SYRINGE SUBCUT SCH (14:49)
[2020-12-23] MEDS: traMADol 50 MG TABLET PO PRN (17:54)
[2020-12-23] MEDS: TAMSULOSIN 0.4 MG CAPSULE PO SCH (20:54)
[2020-12-23] MEDS: SIMVASTATIN 40 MG TABLET PO SCH (20:54)
[2020-12-23] MEDS: amLODIPine 2.5 MG TABLET PO SCH (20:54)
[2020-12-23] MEDS: carvediloL 3.125 MG TABLET PO SCH (20:54)
[2020-12-23] MEDS: MELATONIN 3 MG TABLET PO PRN (20:55)
[2020-12-24] MEDS: DICLOFENAC 1% GEL 100 GM TUBE TOP SCH ×5 (03:52→21:06)
[2020-12-24 05:37] LABS: Basophils % 0.5 % (0.0-0.8); Eosinophils # 0.2 10*3/uL (0.0-0.87); Eosinophils % 2.5 % (0.00-10.9); Hemoglobin 12.7 GM/DL (14.0-18.0); Immature Granulocytes % 0.4 %; Immature Granulocytes Absolute 0.03 #; Lymphocytes # 1.9 10*3/uL (1.4-4.0); Lymphocytes % 25.6 % (21.2-54.2); Mean Corpuscular HGB Conc 32.6 GM/DL (32-36); Mean Corpuscular Volume 88.4 FL (87-102); Mean Platelet Volume 10.4 FL (9.6-12.0); Monocytes % 10.2 % (1.7-12.7); Neutrophils % 60.8 % (38.7-73.9); Platelet Count 175 T/CUMM (130-400); Red Blood Count 4.41 MC/CUMM (3.8-5.5); Red Cell Distribution Width 14.5 % (9.3-17.3); White Blood Count 7.6 T/CUMM (4-12)
[2020-12-24 06:02] LABS: Albumin 3.2 G/DL (3.4-5.0); Bilirubin,Total 0.5 MG/DL (0.2-1.0); Calcium 8.7 MG/DL (8.5-10.1); Osmolality,Calculated 282.3 MOS/KG (273-304); Potassium 3.5 MMOL/L (3.5-5.1); Total Protein 5.9 G/DL (6.4-8.2)
[2020-12-24] MEDS ORDERED: TAMSULOSIN 0.4 MG CAPSULE PO SCH (09:00)
[2020-12-24] MEDS: LOSARTAN 25 MG TABLET PO SCH (09:08)
[2020-12-24] MEDS: traMADol 50 MG TABLET PO PRN ×2 (09:08→21:11)
[2020-12-24] MEDS: PANTOPRAZOLE 40 MG TABLET PO SCH (09:08)
[2020-12-24] MEDS: amLODIPine 2.5 MG TABLET PO SCH ×2 (09:08→21:05)
[2020-12-24] MEDS: ISOSORBIDE DINITRATE 10 MG TABLET PO SCH (09:09)
[2020-12-24] MEDS: ASPIRIN EC 81 MG TABLET PO SCH (09:09)
[2020-12-24] MEDS: GABAPENTIN 100 MG CAPSULE PO SCH (09:09)
[2020-12-24] MEDS: TAMSULOSIN 0.4 MG CAPSULE PO SCH ×2 (09:09→21:06)
[2020-12-24] MEDS: OXcarbazepine 300 MG TABLET PO SCH (09:09)
[2020-12-24] MEDS: cefTRIAXone 1,000 MG in SODIUM CHLORIDE 0.9% 100 ML IV SCH (09:09)
[2020-12-24] MEDS: carvediloL 3.125 MG TABLET PO SCH ×2 (09:09→21:05)
[2020-12-24] MEDS: ENOXAPARIN 40 MG/0.4 ML SYRINGE SUBCUT SCH (09:09)
[2020-12-24] MEDS: SIMVASTATIN 40 MG TABLET PO SCH (21:05)
[2020-12-24] MEDS: MELATONIN 3 MG TABLET PO PRN (21:10)
[2020-12-25] MEDS: TAMSULOSIN 0.4 MG CAPSULE PO SCH ×2 (09:14→21:05)
[2020-12-25] MEDS: GABAPENTIN 100 MG CAPSULE PO SCH (09:15)
[2020-12-25] MEDS: OXcarbazepine 300 MG TABLET PO SCH (09:15)
[2020-12-25] MEDS: ASPIRIN EC 81 MG TABLET PO SCH (09:15)
[2020-12-25] MEDS: PANTOPRAZOLE 40 MG TABLET PO SCH (09:15)
[2020-12-25] MEDS: amLODIPine 2.5 MG TABLET PO SCH ×2 (09:15→21:05)
[2020-12-25] MEDS: carvediloL 3.125 MG TABLET PO SCH ×2 (09:15→21:04)
[2020-12-25] MEDS: ISOSORBIDE DINITRATE 10 MG TABLET PO SCH (09:16)
[2020-12-25] MEDS: LOSARTAN 25 MG TABLET PO SCH (09:16)
[2020-12-25] MEDS: traMADol 50 MG TABLET PO PRN ×2 (09:17→21:04)
[2020-12-25] MEDS: ENOXAPARIN 40 MG/0.4 ML SYRINGE SUBCUT SCH (09:17)
[2020-12-25] MEDS: cefTRIAXone 1,000 MG in SODIUM CHLORIDE 0.9% 100 ML IV SCH (09:17)
[2020-12-25] MEDS: DICLOFENAC 1% GEL 100 GM TUBE TOP SCH ×4 (09:18→21:05)
[2020-12-25 16:14] LABS: Calcium 8.7 MG/DL (8.5-10.1); Osmolality,Calculated 277.5 MOS/KG (273-304)
[2020-12-25] MEDS: SIMVASTATIN 40 MG TABLET PO SCH (21:04)
[2020-12-25] MEDS: MELATONIN 3 MG TABLET PO PRN (21:07)
[2020-12-26] MEDS: amLODIPine 2.5 MG TABLET PO SCH (08:33)
[2020-12-26] MEDS: ASPIRIN EC 81 MG TABLET PO SCH (08:34)
[2020-12-26] MEDS: TAMSULOSIN 0.4 MG CAPSULE PO SCH (08:34)
[2020-12-26] MEDS: OXcarbazepine 300 MG TABLET PO SCH (08:34)
[2020-12-26] MEDS: ISOSORBIDE DINITRATE 10 MG TABLET PO SCH (08:34)
[2020-12-26] MEDS: PANTOPRAZOLE 40 MG TABLET PO SCH (08:35)
[2020-12-26] MEDS: LOSARTAN 25 MG TABLET PO SCH (08:35)
[2020-12-26] MEDS: GABAPENTIN 100 MG CAPSULE PO SCH (08:35)
[2020-12-26] MEDS: carvediloL 3.125 MG TABLET PO SCH (08:35)
[2020-12-26] MEDS: ENOXAPARIN 40 MG/0.4 ML SYRINGE SUBCUT SCH (08:35)
[2020-12-26] MEDS: cefTRIAXone 1,000 MG in SODIUM CHLORIDE 0.9% 100 ML IV SCH (08:38)
[2020-12-26] MEDS: traMADol 50 MG TABLET PO PRN (08:39)
[2020-12-26] MEDS: DICLOFENAC 1% GEL 100 GM TUBE TOP SCH (09:39)
[2020-12-26 11:45] VITALS: BP 97/58
== END 2020-12-26 13:59 | disposition home health service (06) | DRG 699 ==
LOC: EDUNIT# → EDBD → N.ED 09:30 → N.EDINP 13:47 → N.5E 15:52
PROVIDERS: ADMIT Family Medicine; ATTEND Family Medicine